=== PATIENT | female | born 1995 | race Caucasian/White ===

== ENCOUNTER 2018-09-07 19:29 | Emergency (ER) | payer BC ==
[~2018-09-07] VITALS: Ht 160 cm; Wt 61.2 kg
[~2018-09-07 19:29] MED LIST: ACETAMINOHPEN/C1 TAB PO; AMOXICILLIN/CLA1 TA2 PO; ANTIVERT/2525 MG PO; ASHLYNA1 TAB PO; MIXED AMPHETAMI30 MG PO; MOTRIN400 MG PO; MOTRIN600 MG PO; MOTRIN800 MG PO; NKHM
== END 2018-09-07 22:00 | disposition home or self-care (01) ==
LOC: ED 19:29
DX: S93.401A Sprain of unspecified ligament of right ankle, initial encounter (principal); Z79.899 Other long term (current) drug therapy; W18.49XA Other slipping, tripping and stumbling without falling, initial encounter; Y93.89 Activity, other specified; Y92.89 Other specified places as the place of occurrence of the external cause; Y99.8 Other external cause status

== ENCOUNTER → 2020-03-14 | Outpatient (CLI) | payer BC | END | disposition home or self-care (01) | LOC: US 14:24 | PROVIDERS: ATTEND Nurse Practitioner Women's Health | DX: Z32.01 Encounter for pregnancy test, result positive (principal); Z33.1 Pregnant state, incidental; Z3A.09 9 weeks gestation of pregnancy ==

== ENCOUNTER → 2020-05-16 | Outpatient (CLI) | payer BC | END | disposition home or self-care (01) | LOC: US 11:00 | PROVIDERS: ATTEND Obstetrics & Gynecology | DX: Z34.02 Encounter for supervision of normal first pregnancy, second trimester (principal); Z3A.18 18 weeks gestation of pregnancy ==

== ENCOUNTER → 2020-07-15 | Outpatient (CLI) | payer BC | END | disposition home or self-care (01) | LOC: LAB 07:24 | PROVIDERS: ATTEND Nurse Practitioner Women's Health | DX: Z34.02 Encounter for supervision of normal first pregnancy, second trimester (principal); Z3A.27 27 weeks gestation of pregnancy; R73.09 Other abnormal glucose ==

== ENCOUNTER → 2020-08-09 | Outpatient (CLI) | payer BC | END | disposition home or self-care (01) | LOC: US 10:48 | PROVIDERS: ATTEND Nurse Practitioner Women's Health | DX: Z34.03 Encounter for supervision of normal first pregnancy, third trimester (principal); Z3A.31 31 weeks gestation of pregnancy ==

== ENCOUNTER → 2020-09-19 | Outpatient (CLI) | payer BC | END | disposition home or self-care (01) | LOC: US 12:08 | PROVIDERS: ATTEND Obstetrics & Gynecology | DX: Z34.03 Encounter for supervision of normal first pregnancy, third trimester (principal); Z3A.36 36 weeks gestation of pregnancy ==

== ENCOUNTER 2021-08-03 21:45 | Emergency (ER) | payer BC ==
[~2021-08-03] VITALS: Ht 160 cm; Wt 104.3 kg
[2021-08-03] MEDS ORDERED: ADDERALL 20 MG20 MG PO (21:56)
[2021-08-04] MEDS ORDERED: AMOXICILLIN500 M3 PO (11:41)
== END 2021-08-03 22:15 | disposition home or self-care (01) ==
LOC: ED 21:45
DX: J32.9 Chronic sinusitis, unspecified (principal); Z79.899 Other long term (current) drug therapy

== ENCOUNTER 2021-08-10 04:41 | Emergency (ER) | payer BC ==
[~2021-08-10] VITALS: Ht 160 cm; Wt 97.5 kg
[~2021-08-10 04:41] MED LIST changes: +ADDERALL 20 MG20 MG PO; +AMOXICILLIN500 M3 PO
[2021-08-10] MEDS ORDERED: 'zithromax250 MG PO (05:11)
[2021-08-10] MEDS ORDERED: MEDROL DOSEPAK4 MG PO (05:11)
== END 2021-08-10 05:39 | disposition home or self-care (01) ==
LOC: ED 04:41
DX: R05.9 Cough, unspecified (principal); Z79.899 Other long term (current) drug therapy

== ENCOUNTER 2022-04-01 17:26 | Emergency (ER) | payer BC ==
[~2022-04-01] VITALS: Ht 160 cm; Wt 101.6 kg
[~2022-04-01 17:26] MED LIST changes: +'zithromax250 MG PO; +MEDROL DOSEPAK4 MG PO
[2022-04-01 20:35] LABS: BASO % 0.5 % (0.0-1.0); EOS # 0.2 10*3/uL (0.0-0.4); EOS % 2.6 % (1.0-4.0); HEMATOCRIT 38.1 % (37.0-47.0); LYMPH # 1.6 10*3/uL (1.3-4.4); LYMPH % 27.2 % (27.0-41.0); MEAN CORPUSCULAR HGB 26.6 pg (27.0-31.0); MEAN CORPUSCULAR HGB CONC 31.2 g/dl (33.0-37.0); MEAN PLATELET VOLUME 9.9 fl (9.6-12.3); MONO # 0.7 10*3/uL (0.1-1.0); MONO % 11.6 % (3.0-9.0); NEUT # 3.4 10*3/uL (2.3-7.9); NEUT % 57.9 % (47.0-73.0); PLATELET COUNT AUTOMATED 258 10*3/uL (130-400); RED BLOOD COUNT 4.48 10*6/uL (4.10-5.10); RED CELL DISTRI WIDTH 15.9 % (0-14.5); WHITE BLOOD COUNT 5.9 10*3/uL (4.8-10.8)
[2022-04-01 20:50] LABS: ALKALINE PHOSPHATASE 112 U/L (45-117); BUN 7 mg/dl (7-24); CHLORIDE 105 mmol/L (98-107); CREATININE 0.73 mg/dL (0.55-1.02); POTASSIUM 3.9 mmol/L (3.5-5.1); SGPT/ALT 36 U/L (12-78); SODIUM 137 mmol/L (136-145); TOTAL PROTEIN 7.6 gm/dL (6.4-8.2)
== END 2022-04-01 22:42 | disposition home or self-care (01) ==
LOC: ED 17:26
PROVIDERS: Emergency Medicine
DX: J10.1 Influenza due to other identified influenza virus with other respiratory manifestations (principal); Z20.822 Contact with and (suspected) exposure to COVID-19; N92.0 Excessive and frequent menstruation with regular cycle; Z88.8 Allergy status to other drugs, medicaments and biological substances; Z79.899 Other long term (current) drug therapy

== ENCOUNTER 2022-06-27 20:44 | Emergency (ER) | payer OTHER ==
[~2022-06-27] VITALS: Ht 160 cm; Wt 102.1 kg
[2022-06-27] MEDS ORDERED: VIBRA-TAB100 MG PO (20:59)
== END 2022-06-27 21:16 | disposition home or self-care (01) ==
LOC: ED 20:44
DX: H65.92 Unspecified nonsuppurative otitis media, left ear (principal); Z88.8 Allergy status to other drugs, medicaments and biological substances

== ENCOUNTER 2023-06-09 14:20 | Emergency (ER) | payer SELFPAY ==
[~2023-06-09] VITALS: Ht 160 cm; Wt 104.3 kg
[~2023-06-09 14:20] MED LIST changes: +VIBRA-TAB100 MG PO
[2023-06-09] MEDS ORDERED: CYCLOBENZAPRINE10 MG PO (14:42)
[2023-06-09] MEDS ORDERED: MELOXICAM15 MG PO (14:42)
== END 2023-06-09 16:09 | disposition home or self-care (01) ==
LOC: ED 14:20
DX: M54.9 Dorsalgia, unspecified (principal); R11.0 Nausea; F90.9 Attention-deficit hyperactivity disorder, unspecified type; Z88.8 Allergy status to other drugs, medicaments and biological substances

== ENCOUNTER 2023-06-22 20:01 | Emergency (ER) | payer SELFPAY ==
[~2023-06-22 20:01] MED LIST changes: +CYCLOBENZAPRINE10 MG PO; +MELOXICAM15 MG PO
[2023-06-22] MEDS ORDERED: MG-AL HYDROXIDE/SIMETICONE 30 ML UDC PO STA (20:28)
[2023-06-22] MEDS ORDERED: Dicyclomine Hydrochloride 20 MG/10 ML OSYR PO STA (20:28)
[2023-06-22] MEDS ORDERED: Lidocaine Hydrochloride 15 ML UDC PO STA (20:28)
[2023-06-22] MEDS ORDERED: Ketorolac Tromethamine 30 MG/ML VIAL IM ONE (20:30)
[2023-06-22] MEDS ORDERED: methylPREDNISolone sod succ 125 MG VIAL IM ONE (20:30)
[2023-06-22 20:47] LABS: BASO % 0.3 % (0.0-1.0); EOS # 0.2 10*3/uL (0.0-0.4); EOS % 2.1 % (1.0-4.0); LYMPH # 2.7 10*3/uL (1.3-4.4); LYMPH % 34.1 % (27.0-41.0); MEAN CELL VOLUME 83.7 fl (81.0-99.0); MEAN CORPUSCULAR HGB 25.3 pg (27.0-31.0); MEAN CORPUSCULAR HGB CONC 30.3 g/dl (33.0-37.0); MEAN PLATELET VOLUME 10.2 fl (9.6-12.3); MONO # 0.5 10*3/uL (0.1-1.0); MONO % 6.3 % (3.0-9.0); NEUT # 4.6 10*3/uL (2.3-7.9); NEUT % 56.8 % (47.0-73.0); PLATELET COUNT AUTOMATED 271 10*3/uL (130-400); RED BLOOD COUNT 4.66 10*6/uL (4.10-5.10); RED CELL DISTRI WIDTH 16.1 % (0-14.5)
[2023-06-22 21:08] LABS: ALKALINE PHOSPHATASE 88 U/L (46-116); BUN 6 mg/dl (9-23); CHLORIDE 108 mmol/L (98-107); POTASSIUM 3.7 mmol/L (3.4-5.1); SGPT/ALT 15 U/L (5-49)
== END 2023-06-22 22:19 | disposition home or self-care (01) ==
LOC: ED 20:01
PROVIDERS: Physician Assistant Medical
DX: M54.9 Dorsalgia, unspecified (principal); R10.13 Epigastric pain; F90.9 Attention-deficit hyperactivity disorder, unspecified type; Z88.8 Allergy status to other drugs, medicaments and biological substances

== ENCOUNTER 2024-05-31 20:23 | Emergency (ER) | payer SELFPAY ==
[~2024-05-31] VITALS: Ht 160 cm; Wt 108.9 kg
[2024-05-31] MEDS ORDERED: CEPHALEXIN500 M1 PO (21:14)
[2024-05-31] MEDS ORDERED: MUPIROCIN 15 GM TUBE T ONE (21:15)
[2024-05-31] MEDS ORDERED: IBU800 MG PO (21:17)
[2024-05-31] MEDS ORDERED: IBUPROFEN 800 MG TAB PO ONE (21:20)
[2024-05-31] MEDS ORDERED: CEPHALEXIN 500 MG CAP PO ONE (21:20)
== END 2024-05-31 21:29 | disposition home or self-care (01) ==
LOC: ED 20:23
DX: S61.231A Puncture wound without foreign body of left index finger without damage to nail, initial encounter (principal); Z79.899 Other long term (current) drug therapy; Z88.8 Allergy status to other drugs, medicaments and biological substances; W31.0XXA Contact with mining and earth-drilling machinery, initial encounter; Y93.89 Activity, other specified; Y92.89 Other specified places as the place of occurrence of the external cause; Y99.8 Other external cause status